=== PATIENT | female | born 2000 | race Caucasian/White ===

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

== ENCOUNTER 2020-05-23 23:20 | Emergency (ER) | payer OTHER ==
[~2020-05-23] VITALS: Ht 162.6 cm; Wt 102.1 kg
--- NOTE | 2020-05-23 23:46 | NUR ---
TO ER BED 3
[2020-05-23 23:49] VITALS: BP 112/85
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
[2020-05-24] MEDS: KETOROLAC 30 MG/ML VIAL IVP ONE (00:38)
--- NOTE | 2020-05-24 00:45 | NUR ---
DUE MEDS GIVEN
--- NOTE | 2020-05-24 00:50 | NUR ---
CECE Marcus at bedside evaluating pt.
--- NOTE | 2020-05-24 00:50 | NUR ---
providing relief for primary nurse Argenis. assumed pt care at this time.
[2020-05-24 00:51] LABS: BASOPHILS % (AUTO) 0.4 % (0.0-2.0); EOSINOPHILS # (AUTO) 0.6 K/uL (0-0.4); EOSINOPHILS % (AUTO) 6.3 % (0.0-4.0); HEMATOCRIT 39.7 % (36-48); HEMOGLOBIN 13.3 g/dL (12.0-16.0); LYMPHOCYTES # (AUTO) 2.6 K/uL (2.5-16.5); LYMPHOCYTES % (AUTO) 29.3 % (20.5-51.1); MEAN CORPUSCULAR HEMOGLOBIN 30 pg (27-31); MEAN CORPUSCULAR HGB CONC 33 g/dL (33-37); MEAN CORPUSCULAR VOLUME 90.4 fL (80-94); MONOCYTES # (AUTO) 0.6 K/uL (0.8-1.0); MONOCYTES % (AUTO) 6.7 % (1.7-9.3); NEUTROPHILS % (AUTO) 57.3 % (42.2-75.2); PLATELET COUNT (AUTO) 244 K/uL (140-450); RED BLOOD CELL COUNT(AUTO) 4.39 MIL/uL (4.20-5.40); RED CELL DISTRIBUTION WIDTH 12.7 % (11.6-13.7); WHITE BLOOD COUNT (AUTO) 8.8 K/uL (4.5-11.0)
[2020-05-24 01:01] LABS: ANION GAP 9.6 (8-16); CARBON DIOXIDE 29.1 mmol/L (21-32); POTASSIUM 3.7 mmol/L (3.5-5.1)
[2020-05-24 01:11] LABS: ALBUMIN 3.6 g/dL (3.4-5.0); BILIRUBIN,DIRECT 0.1 mg/dL (0.0-0.3); TOTAL BILIRUBIN 0.4 mg/dL (0.0-1.0)
--- NOTE | 2020-05-24 02:28 | NUR ---
ULTRASOUND AT BEDSIDE
[2020-05-24 03:20] VITALS: BP 114/75
--- NOTE | 2020-05-24 03:21 | NUR ---
Patient discharged with v/s stable. Written and verbal after care instructions given and explained. Patient alert, oriented and verbalized understanding of instructions. Ambulatory with steady gait. All questions addressed prior to discharge. ID band removed. Patient advised to follow up with PMD. Rx of NAPRAXEN given. Patient educated on indication of medication including possible reaction and side effects. Opportunity to ask questions provided and answered.
== END 2020-05-24 03:20 | disposition home or self-care (01) ==
LOC: MED 23:20
DX: K80.50 Calculus of bile duct without cholangitis or cholecystitis without obstruction (principal)
CPT/HCPCS: 36415; 76705; 80048; 80076; 83690; 85025; 96374; 99285; J1885; Q0092

== ENCOUNTER 2020-06-02 09:19 | Emergency (ER) | payer OTHER ==
[~2020-06-02] VITALS: Ht 162.6 cm; Wt 102.5 kg
[2020-06-02 09:25] VITALS: BP 127/73
[2020-06-02] MEDS ORDERED: ONDANSETRON 4 MG/2 ML VIAL IVP ONE (09:40)
[2020-06-02] MEDS ORDERED: MORPHINE SULFATE 4 MG/ML SYR IVP ONE (09:40)
--- NOTE | 2020-06-02 10:08 | NUR ---
20 Y/O FEMALE C/O RUQ PAIN SINCE THIS MORNING. PT DENIES ANY N/V/D. NON RADIATING PAIN, 8/10 SHARP. VSS. AAOX4. ABD SOFT/ TENDER UPON PALPATION, NO DISTENTION NOTED. BOWEL SOUNDS NORMOACTIVE IN ALL QUADRANTS. RESP EVEN AND UNLABORED. DENIES ANY FEVER OR CHILLS AT THIS TIME US AT BEDSIDE. PMH: ASTHMA ALLERGIES:PENICILLINS
[2020-06-02 11:14] LABS: BASOPHILS % (AUTO) 0.5 % (0.0-2.0); EOSINOPHILS # (AUTO) 0.6 K/uL (0-0.4); EOSINOPHILS % (AUTO) 7.9 % (0.0-4.0); HEMATOCRIT 36.8 % (36-48); HEMOGLOBIN 12.2 g/dL (12.0-16.0); LYMPHOCYTES # (AUTO) 2.2 K/uL (2.5-16.5); LYMPHOCYTES % (AUTO) 29.5 % (20.5-51.1); MEAN CORPUSCULAR HEMOGLOBIN 30 pg (27-31); MEAN CORPUSCULAR HGB CONC 33 g/dL (33-37); MONOCYTES # (AUTO) 0.4 K/uL (0.8-1.0); MONOCYTES % (AUTO) 5.4 % (1.7-9.3); NEUTROPHILS # (AUTO) 4.2 K/uL (1.8-7.7); NEUTROPHILS % (AUTO) 56.7 % (42.2-75.2); PLATELET COUNT (AUTO) 241 K/uL (140-450); RED BLOOD CELL COUNT(AUTO) 4.09 MIL/uL (4.20-5.40); RED CELL DISTRIBUTION WIDTH 12.6 % (11.6-13.7); WHITE BLOOD COUNT (AUTO) 7.5 K/uL (4.5-11.0)
[2020-06-02 11:27] LABS: ALBUMIN 3.3 g/dL (3.4-5.0); ANION GAP 14.4 (8-16); CREATININE 0.9 mg/dL (0.6-1.3); POTASSIUM 3.4 mmol/L (3.5-5.1); TOTAL BILIRUBIN 0.3 mg/dL (0.0-1.0)
[2020-06-02 11:49] VITALS: BP 127/73
== END 2020-06-02 11:50 | disposition home or self-care (01) ==
LOC: MED 09:19
DX: K80.50 Calculus of bile duct without cholangitis or cholecystitis without obstruction (principal); J45.909 Unspecified asthma, uncomplicated; Z79.899 Other long term (current) drug therapy; Z88.0 Allergy status to penicillin
CPT/HCPCS: 36415; 76705; 80053; 83690; 85025; 96374; 96375; 99284; J2270; J2405; Q0092

== ENCOUNTER 2022-07-01 13:59 | Emergency (ER) | payer OTHER ==
[~2022-07-01] VITALS: Ht 162.6 cm; Wt 98.4 kg
[2022-07-01 14:09] VITALS: BP 134/64
--- NOTE | 2022-07-01 14:25 | NUR ---
ROGERIO SWAIN AT BEDSIDE.
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
[2022-07-01] MEDS ORDERED: IBUPROFEN 800 MG TAB PO ONE (14:30)
--- NOTE | 2022-07-01 14:55 | NUR ---
PT TO X-RAY VIA WHEELCHAIR.
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
[2022-07-01] MEDS ORDERED: CYCL-711 PO (15:21)
[2022-07-01] MEDS ORDERED: NAPR-54 PO (15:21)
--- NOTE | 2022-07-01 15:34 | NUR ---
Patient discharged with v/s stable. Written and verbal after care instructions given and explained. Patient alert, oriented and verbalized understanding of instructions. Ambulatory with steady gait. All questions addressed prior to discharge. ID band removed. Patient advised to follow up with PMD. Rx of CYCLOBENZAPRINE HCI given. Opportunity to ask questions provided and answered.
--- NOTE | 2022-07-01 16:17 | NUR ---
The patient's care was reviewed and supervised by Claudette Alicia, RN, RN.
== END 2022-07-01 15:34 | disposition home or self-care (01) ==
LOC: MED 13:59
DX: M25.561 Pain in right knee (principal); M54.2 Cervicalgia; M54.50 Low back pain, unspecified; M62.830 Muscle spasm of back; J45.909 Unspecified asthma, uncomplicated; Z90.49 Acquired absence of other specified parts of digestive tract; Z79.899 Other long term (current) drug therapy; Z79.1 Long term (current) use of non-steroidal anti-inflammatories (NSAID); Z88.0 Allergy status to penicillin
CPT/HCPCS: 73562; 81025; 99283

== ENCOUNTER 2023-05-30 07:30 | Emergency (ER) | payer OTHER ==
[~2023-05-30] VITALS: Ht 162.6 cm; Wt 104.3 kg
[~2023-05-30 07:30] MED LIST changes: +CYCL-711 PO; +NAPR-54 PO
[2023-05-30 08:11] VITALS: BP 143/93; PULSE 73; RESP 18; TEMP 98.1; O2SAT 100
[2023-05-30] MEDS ORDERED: HYDROcodone/APAP 5/325 MG 1 TAB TAB PO ONE (08:25)
[2023-05-30] MEDS ORDERED: HYDR-5191 PO (08:26)
[2023-05-30 09:47] VITALS: BP 136/78; PULSE 76; RESP 14; TEMP 97.1; O2SAT 99
== END 2023-05-30 09:47 | disposition home or self-care (01) ==
LOC: MED 07:30
DX: K08.89 Other specified disorders of teeth and supporting structures (principal); Z98.818 Other dental procedure status; J45.909 Unspecified asthma, uncomplicated; Z79.899 Other long term (current) drug therapy; Z79.1 Long term (current) use of non-steroidal anti-inflammatories (NSAID); Z88.0 Allergy status to penicillin
CPT/HCPCS: 99283

== ENCOUNTER 2023-05-31 23:10 | Emergency (ER) | payer OTHER ==
[~2023-05-31] VITALS: Ht 162.6 cm; Wt 104.3 kg
[~2023-05-31 23:10] MED LIST changes: +HYDR-5191 PO
[2023-06-01 00:05] VITALS: BP 115/83; PULSE 74; RESP 22; TEMP 97.2; O2SAT 97
[2023-06-01 00:52] VITALS: BP 115/83; PULSE 74; RESP 22; TEMP 97.2; O2SAT 97
== END 2023-06-01 01:10 | disposition home or self-care (01) ==
LOC: MED 23:10
DX: K08.89 Other specified disorders of teeth and supporting structures (principal); E03.9 Hypothyroidism, unspecified; J45.909 Unspecified asthma, uncomplicated; Z88.0 Allergy status to penicillin; Z79.899 Other long term (current) drug therapy
CPT/HCPCS: 99281

== ENCOUNTER 2023-06-29 21:49 | Emergency (ER) | payer OTHER ==
[2023-06-30] MEDS ORDERED: CLIN150C1 PO (04:50)
== END 2023-06-29 22:26 | disposition left against medical advice (07) ==
LOC: MED 21:49
DX: M79.673 Pain in unspecified foot (principal); Z53.21 Procedure and treatment not carried out due to patient leaving prior to being seen by health care provider

== ENCOUNTER 2023-06-30 03:55 | Emergency (ER) | payer OTHER ==
[~2023-06-30] VITALS: Ht 162.6 cm; Wt 106.1 kg
[2023-06-30 04:03] VITALS: BP 113/49; PULSE 93; RESP 18; TEMP 97.8; O2SAT 95
[2023-06-30] MEDS ORDERED: ACETAMINOPHEN EXTRA STRENGTH 500 MG TAB PO ONE (04:45)
[2023-06-30] MEDS ORDERED: CLINDAMYCIN 150 MG CAP PO ONE (04:45)
[2023-06-30] MEDS ORDERED: KETOROLAC 15 MG/ML VIAL IM ONE (04:45)
[2023-06-30] MEDS ORDERED: CLIN150C1 PO (04:50)
[2023-06-30] MEDS ORDERED: CRUSHER, PILL MC ONE (05:00)
[2023-07-01] MEDS ORDERED: DOXY-690 PO (14:38)
== END 2023-06-30 05:26 | disposition home or self-care (01) ==
LOC: MED 03:55
DX: L03.115 Cellulitis of right lower limb (principal); J45.909 Unspecified asthma, uncomplicated; E03.9 Hypothyroidism, unspecified; Z79.2 Long term (current) use of antibiotics; Z79.899 Other long term (current) drug therapy; Z79.1 Long term (current) use of non-steroidal anti-inflammatories (NSAID); Z88.0 Allergy status to penicillin; Z91.013 Allergy to seafood
CPT/HCPCS: 96372; 99283; J1885

== ENCOUNTER 2023-07-01 13:19 | Emergency (ER) | payer OTHER ==
[~2023-07-01] VITALS: Ht 160 cm; Wt 106.1 kg
[~2023-07-01 13:19] MED LIST changes: +CLIN150C1 PO
[2023-07-01 13:43] VITALS: BP 128/84; PULSE 74; RESP 18; TEMP 98.6; O2SAT 99
[2023-07-01] MEDS ORDERED: BACITRACIN OINT 500 UNITS/GM PKT TP ONE (14:20)
[2023-07-01] MEDS ORDERED: DOXY-690 PO (14:38)
== END 2023-07-01 15:10 | disposition home or self-care (01) ==
LOC: MED 13:19
DX: L03.115 Cellulitis of right lower limb (principal); M79.89 Other specified soft tissue disorders; J45.909 Unspecified asthma, uncomplicated; E07.9 Disorder of thyroid, unspecified; Z79.899 Other long term (current) drug therapy; Z88.0 Allergy status to penicillin; Z91.013 Allergy to seafood
CPT/HCPCS: 81002; 81025; 99283

== ENCOUNTER 2023-07-15 07:00 | Emergency (ER) | payer OTHER ==
[~2023-07-15] VITALS: Ht 162.6 cm; Wt 104.3 kg
[~2023-07-15 07:00] MED LIST changes: +DOXY-690 PO
[2023-07-15 07:07] VITALS: BP 115/75; PULSE 81; RESP 17; TEMP 97.8; O2SAT 99
[2023-07-15 07:23] VITALS: BP 115/75; PULSE 81; RESP 17; TEMP 97.8; O2SAT 99
[2023-07-15] MEDS ORDERED: cephALEXin 500 MG CAP PO ONE (07:30)
[2023-07-15] MEDS ORDERED: CEPH-588 PO (08:12)
== END 2023-07-15 08:21 | disposition home or self-care (01) ==
LOC: MED 07:00
DX: L03.031 Cellulitis of right toe (principal); J45.909 Unspecified asthma, uncomplicated; E03.9 Hypothyroidism, unspecified; Z79.899 Other long term (current) drug therapy; Z88.0 Allergy status to penicillin; Z91.013 Allergy to seafood
CPT/HCPCS: 99283